=== PATIENT | female | born 1990 | race African-American/Black ===

== ENCOUNTER 2017-11-07 21:16 | Emergency (ER) | payer BC, OTHER ==
[~2017-11-07] VITALS: Ht 157.5 cm; Wt 48.1 kg
[2017-11-07 21:21] VITALS: BP 118/84
[2017-11-07] MEDS ORDERED: NORFLEX100 MG PO (21:44)
== END 2017-11-07 21:55 | disposition home or self-care (01) ==
LOC: ER 21:16
DX: S86.811A Strain of other muscle(s) and tendon(s) at lower leg level, right leg, initial encounter (principal); F17.210 Nicotine dependence, cigarettes, uncomplicated; X58.XXXA Exposure to other specified factors, initial encounter; Y93.89 Activity, other specified; Y92.89 Other specified places as the place of occurrence of the external cause; Y99.8 Other external cause status

== ENCOUNTER 2018-03-18 12:25 | Emergency (ER) | payer OTHER ==
[~2018-03-18] VITALS: Ht 157.5 cm; Wt 56.7 kg
[~2018-03-18 12:25] MED LIST: NORFLEX100 MG PO
[2018-03-18] MEDS ORDERED: PRENATAL VITAM1 EAC8 PO (12:57)
[2018-03-18] MEDS ORDERED: NORCO 5-325 TA1 EACH PO (14:19)
[2018-03-18 14:32] VITALS: BP 126/74
== END 2018-03-18 14:33 | disposition home or self-care (01) ==
LOC: ER 12:25
DX: O9A.212 Injury, poisoning and certain other consequences of external causes complicating pregnancy, second trimester (principal); Z3A.20 20 weeks gestation of pregnancy; R10.9 Unspecified abdominal pain; M54.2 Cervicalgia; F17.210 Nicotine dependence, cigarettes, uncomplicated; Y04.2XXA Assault by strike against or bumped into by another person, initial encounter; Y93.89 Activity, other specified; Y92.89 Other specified places as the place of occurrence of the external cause; Y99.8 Other external cause status